=== PATIENT | male | born 2000 | race Caucasian/White ===

== ENCOUNTER 2021-04-08 17:54 | Emergency (ER) | payer BC ==
[2021-04-08] MEDS ORDERED: Midazolam 1 MG/ML 2 ML SDV IVPUSH PRN (18:12)
--- NOTE | 2021-04-08 18:12 | EDM.PDOC ---
ED HPI GENERAL MEDICAL PROBLEM - General Time Seen by Provider: 04/08/21 18:01 Source of Information: Reports: Patient, Other - History of Present Illness INITIAL COMMENTS - FREE TEXT/NARRATIVE: Tano is a 20 y/o male who is brought to the ER bu EMS for a left elbow injury that he sustained at football practice. 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 - Related Data Allergies Allergy/AdvReac Type Severity Reaction Status Date / Time No Known Allergies Allergy Verified 04/08/21 18:09 Home Meds: Home Meds . [No Known Home Meds] 04/08/21 [History] Review of Systems - Review of Systems Review Of Systems: See Below Constitutional: Reports: No Symptoms Eyes: Reports: No Symptoms Ears: Reports: No Symptoms Nose: Reports: No Symptoms Mouth/Throat: Reports: No Symptoms Respiratory: Reports: No Symptoms Cardiovascular: Reports: No Symptoms GI/Abdominal: Reports: No Symptoms Genitourinary: Reports: No Symptoms Musculoskeletal: Reports: Other (Left elbow pain) Skin: Reports: No Symptoms Neurological: Reports: No Symptoms Psychiatric: Reports: No Symptoms ED EXAM, GENERAL - Physical Exam Exam: See Below General Appearance: Alert, WD/WN (Adolescent male on ER in football gear, sitting quietly.) Ears: Hearing Grossly Normal Head: Atraumatic, Normocephalic Respiratory/Chest: No Respiratory Distress Cardiovascular: Regular Rate, Rhythm Peripheral Pulses: 4+: Radial (L), Radial (R) GI/Abdominal: Soft (Male) Exam: Deferred Extremities: Other (Air plint to left elbow, able to move fingers, pulses strong, painful with any movment, obvious deformity to left elbow) Neurological: Alert, Oriented, CN II-XII Intact, No Motor/Sensory Deficits Skin Exam: Warm, Diaphoretic, Pallor Course - Vital Signs Text/Narrative:: 1758 Patient seen on arrival Xray ordered. Attempt made to reduce elbow, but then paused due to pain. RN was starting IV and when patient moved and [facility] Squad Sergeant holding left arm, it went into place. Shoulder immobilizer applied. Post reduction film obtained and good alignment noted, no fx apparent but will see final rad report. He was given Fentanyl 100mcg IM for pain. Will have him see the Orthopod tomorrow at [facility] in [place]. Written instructions were given and he left the ER in stable condition with [facility] staff. - Orders/Labs/Meds Orders: Active Orders 24 hr Category Date Time Status Elbow 2V Lt [CR] Stat Exams 04/08/21 17:58 Ordered Departure - Departure Time of Disposition: 18:30 Disposition: Home, Self-Care 01 Condition: Good Clinical Impression: Sports injury Closed dislocation of left elbow Qualifiers: Encounter type: initial encounter Qualified Code(s): S53.105A - Unspecified dislocation of left ulnohumeral joint, initial encounter - Discharge Information *PRESCRIPTION DRUG MONITORING PROGRAM REVIEWED*: No *COPY OF PRESCRIPTION DRUG MONITORING REPORT IN PATIENT CRISTA: No Instructions: Elbow Dislocation Rehab-SportsMed, Elbow Dislocation, Acetaminophen; Hydrocodone tablets or capsules Additional Instructions: -Wear the shoulder immobilizer at all times until see by Ortho -Hydrocodone-APAP 5/325mg 1-2 tablets oral every 6 hours as needed for pain #5 (ER) If you need further pain meds, please check with Ortho or your PCP. -Ibuprofen 200mg 3 tablets oral every 6 hours as needed (Use over the counter meds) -May also use OTC Acetaminophen 100mg oral every 6 hours. -Apply ice to the left elbow as needed -No sports participation until seen by Ortho -Go to [facility] tomorrow in [place] -Return as needed to the ER - Problem List & Annotations (1) Closed dislocation of left elbow SNOMED Code(s): 631514696 Code(s): S53.105A - UNSP DISLOCATION OF LEFT ULNOHUMERAL JOINT, INIT ENCNTR Status: Acute Qualifiers: Encounter type: initial encounter Qualified Code(s): S53.105A - Unspecified dislocation of left ulnohumeral joint, initial encounter (2) Sports injury SNOMED Code(s): 193140783 Code(s): T14.90XA - INJURY, UNSPECIFIED, INITIAL ENCOUNTER Status: Acute Annotation/Comment:: No fx noted on xray, final rad reprot pending. Placed in shoudler immobilizer following reduction. - Problem List Review Problem List Initiated/Reviewed/Updated: Yes - My Orders Last 24 Hours: My Active Orders 04/08/21 17:58 Elbow 2V Lt [CR] Stat - Assessment/Plan Last 24 Hours: My Active Orders 04/08/21 17:58 Elbow 2V Lt [CR] Stat Plan: See above
[2021-04-08] MEDS: fentaNYL 100 MCG/2 ML SDV IM ONE (18:20)
[2021-04-08] MEDS: fentaNYL 50 MCG/ML SDV IVPUSH ONE (18:31)
[2021-04-08] MEDS: Take Home: Acetaminophen/HYDROcodone 325-5 MG, 5 Tab Pack PO ONE (18:48)
--- NOTE | 2021-04-08 20:14 | CR ---
[id number] RAD/RAD Elbow Left 2V EXAM: 2 VIEWS LEFT ELBOW. INDICATION: SPORTS INJURY POST REDUCTION COMPARISON: None. DISCUSSION: No fracture, dislocation or other acute osseous abnormality. IMPRESSION: 1. No acute osseous abnormalities Mohsen Fine DO 04/08/212012 Thank you for allowing us to participate in the care of your patient.
--- NOTE | 2021-04-08 20:15 | CR ---
[id number] RAD/RAD Elbow Left 2V EXAM: SINGLE VIEW LEFT ELBOW. INDICATION: LEFT ELBOW INJURY COMPARISON: None. DISCUSSION: Acute posterior dislocation of the elbow joint. There is a linear ossification anterior to the proximal olecranon which may represent a fracture. IMPRESSION: 1. As above. Mohsen Fine DO 04/08/212013 Thank you for allowing us to participate in the care of your patient.
== END 2021-04-08 19:05 | disposition home or self-care (01) ==
LOC: VM.ED 17:54
DX: S53.125A Posterior dislocation of left ulnohumeral joint, initial encounter (principal); W21.01XA Struck by football, initial encounter; Y93.61 Activity, american tackle football
CPT/HCPCS: 24600; 73070-LT; 96372; 99283; 99284-25; A9270-GY; J3010